=== PATIENT | female | born 1995 ===

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

== ENCOUNTER 2017-09-04 16:39 | Emergency (ER) | payer OTHER ==
[2017-09-04 16:59] VITALS: BP 132/73
--- NOTE | 2017-09-04 17:03 | UC ---
Lower Extremity/Ankle HPI - HPI Summary HPI Summary: Pt presents with left ankle pain since . She tells me that she was wearing heels on and twisted her left ankle. Was still able to ambulate , but the next few days felt painful and even worse with ambulation. Has not taken anything OTC for this, but has been using a compression wrap with no relief. Denies numbness or tingling. She did fracture this ankle about 1 year ago. - History of Current Complaint Chief Complaint: UCLowerExtremity Stated Complaint: ANKLE INJURY Time Seen by Provider: 09/04/17 17:00 Hx Obtained From: Patient Hx Last Menstrual Period: presently Severity Initially: Moderate Severity Currently: Moderate Pain Intensity: 6 Pain Scale Used: 0-10 Numeric - Allergies/Home Medications Allergies/Adverse Reactions: Allergies Allergy/AdvReac Type Severity Reaction Status Date / Time No Known Allergies Allergy Verified 09/04/17 16:59 Home Medications: Home Medications NK [No Home Medications Reported] 09/04/17 [History Confirmed 09/04/17] PMH/Surg Hx/FS Hx/Imm Hx Previously Healthy: Yes - Surgical History Surgical History: Yes Surgery Procedure, Year, and Place: LEFT HAND TRIGGER THUMB RELEASE - Social History Alcohol Use: Occasionally Substance Use Type: None Smoking Status (MU): Never Smoked Tobacco Review of Systems Constitutional: Negative Skin: Negative Respiratory: Negative Cardiovascular: Negative Psychological: Negative All Other Systems Reviewed And Are Negative: Yes Physical Exam - Summary Physical Exam Summary: GENERAL: NAD. WDWN. No pain distress. SKIN: No rashes, sores, ulcers, masses, lesions. NECK: Supple. Nontender. No lymphadenopathy. CHEST: CTAB. No r/r/w. No accessory muscle use. Breathing comfortably and in no distress. CV: RRR. Without m/r/g. Pulses intact PT and DP. Brisk cap refill. MSK: Left ankle: TTP over lateral malleolus and ATFL. Strength 5/5. No edema or obvious bony deformities. Negative talar tilt. No increased laxity. Negative [place] test. NEURO: Alert. Sensations intact and symmetric B/L LEs PSYCH: Age appropriate behavior. Triage Information Reviewed: Yes Vital Signs: Initial Vital Signs Temp 98.1 F 09/04/17 16:55 Pulse 95 09/04/17 16:55 Resp 16 09/04/17 16:55 BP 132/73 09/04/17 16:55 Pulse Ox 99 09/04/17 16:55 Lower Extremity Course/Dx - Course Course Of Treatment: XR: IMPRESSION: Normal ankle radiograph. Gel splint, MERVIN wrap, and crutches. RICE. Ibuprofen prn - Differential Dx/Diagnosis Provider Diagnoses: Left ankle sprain Discharge - Discharge Plan Condition: Stable Disposition: HOME Patient Education Materials: Ankle Sprain (DC) Referrals: Non Staff,Doctor [Primary Care Provider] - Additional Instructions: If you develop a fever, shortness of breath, chest pain, new or worsening symptoms - please call your PCP or go to the ED. 1) Rest, Ice, and elevate your ankle as much as possible over the next 24-48 hours 2) Try and OTC ankle brace as needed for pain/instability 3) May take 600-800mg ibuprofen every 6-8 hours as needed for pain.
--- NOTE | 2017-09-04 17:31 | RAD ---
INDICATION: Left lateral ankle pain after a high heel injury COMPARISON: None. TECHNIQUE: 3 views of the left ankle were obtained. FINDINGS: The well corticated bones exhibit normal alignment. Joint spaces appear maintained. No fracture is seen. IMPRESSION: Normal ankle radiograph. If the patient's symptoms persist, follow-up imaging is recommended.
== END 2017-09-04 17:58 | disposition home or self-care (01) ==
LOC: UCEAST 16:39
DX: S93.402A Sprain of unspecified ligament of left ankle, initial encounter (principal); X50.1XXA Overexertion from prolonged static or awkward postures, initial encounter; Y92.9 Unspecified place or not applicable
CPT/HCPCS: 99213; G0463